=== PATIENT | male | born 1945 | race Caucasian/White ===

== ENCOUNTER 2020-08-25 20:32 | Emergency (ER) | payer MEDICAID, MEDICARE ==
[~2020-08-25] VITALS: Ht 172.7 cm; Wt 114.3 kg
[~2020-08-25 20:32] MED LIST: AMLO2.5T5 PO; FLUT15.845 NAS; GABA300C PO; HYDROCHLOROTH12.5 MG PO; LACT10SO28 PO; LISI-167 PO; OMEP-110 PO; TAMS-11 PO; [UNRECOGNIZED DRUG - CODE] TP
[2020-08-25 21:21] LABS: BASOPHILS % (AUTO) 1 % (0-1); EOSINOPHILS % (AUTO) 2 % (1-7); LYMPHOCYTES % (AUTO) 26 % (22-44); MEAN CORPUSCULAR HEMOGLOBIN 30.1 pg (27.5-34.5); MEAN CORPUSCULAR HGB CONC 34.1 g/dL (33.2-36.2); MEAN PLATELET VOLUME 6.4 fL (7.4-10.4); MONOCYTES % (AUTO) 7 % (2-9); NEUTROPHILS % (AUTO) 64 % (42-75); PLATELET COUNT 252 x10^3/uL (130-400); RED BLOOD COUNT 5.01 x10^6/uL (4.38-5.82); RED CELL DISTRIBUTION WIDTH 13.6 % (9.4-14.8)
[2020-08-25 21:23] LABS: MD NO
[2020-08-25 21:29] LABS: ALANINE AMINOTRANSFERASE 39 U/L (12-78); ANION GAP 4 mmol/L (5-15); CALCIUM 8.9 mg/dL (8.5-10.1); CHLORIDE 109 mmol/L (98-107); CREATININE 0.92 mg/dL (0.7-1.3)
[2020-08-25] MEDS ORDERED: SODIUM CHLORIDE FLUSH 10ML SYR IVF ONE (21:30)
[2020-08-25 21:34] LABS: ALKALINE PHOSPHATASE 112 U/L (45-117); BILIRUBIN,TOTAL 0.7 mg/dL (0.2-1.0); TOTAL PROTEIN 7.3 g/dL (6.4-8.2); TROPONIN I < 0.015 ng/mL (0.000-0.045)
[2020-08-25 23:14] VITALS: BP 165/95
== END 2020-08-25 23:18 | disposition home or self-care (01) ==
LOC: ED 22:10
DX: B34.9 Viral infection, unspecified (principal); R06.02 Shortness of breath; Z20.828 Contact with and (suspected) exposure to other viral communicable diseases; R53.1 Weakness; R05 Cough; G89.29 Other chronic pain; R07.9 Chest pain, unspecified; I10 Essential (primary) hypertension
CPT/HCPCS: 36415; 71045; 80053; 84484; 85025; 87635; 93005; 99285